=== PATIENT | female | born 1960 | race Caucasian/White ===

== ENCOUNTER 2017-01-11 10:16 | Emergency (ER) | payer OTHER ==
[~2017-01-11] VITALS: Ht 157.5 cm; Wt 65.9 kg
[2017-01-11] MEDS ORDERED: SOD CHLORIDE 0.9% 500 ML IV STA (10:21)
[2017-01-11] MEDS ORDERED: ASPIRIN 81 MG TAB PO STA (10:21)
[2017-01-11 10:23] VITALS: Ht 157.5 cm; Wt 65.9 kg
[2017-01-11 10:35] LABS: BASOPHIL # 0.1 10^3/ul (0.0-0.1); BASOPHILS % 0.7 % (0.0-2.0); EOSINOPHILS # 0.3 10^3/ul (0.0-0.5); EOSINOPHILS % 2.5 % (0.0-7.0); HEMATOCRIT 41.5 % (37.0-47.0); LYMPHOCYTES # 4.2 10^3/ul (0.8-2.9); LYMPHOCYTES % 35.6 % (15.0-51.0); MEAN CORPUSCULAR HEMOGLOBIN 31.3 pg (29.0-33.0); MEAN CORPUSCULAR HGB CONC 33.7 g/dl (32.0-37.0); MEAN CORPUSCULAR VOLUME 92.6 fl (82.0-101.0); MEAN PLATELET VOLUME 10.8 fl (7.4-10.4); MONOCYTE # 0.6 10^3/ul (0.3-0.9); MONOCYTES % 5.3 % (0.0-11.0); NEUTROPHIL # 6.6 10^3/ul (1.6-7.5); NEUTROPHILS % 55.4 % (39.0-77.0); PLATELET COUNT 308 10^3/UL (140-415); RED BLOOD COUNT 4.48 10^6/ul (4.20-5.40); RED CELL DISTRIBUTION WIDTH 12.3 % (11.5-14.5); WHITE BLOOD COUNT 11.8 10^3/ul (4.8-10.8)
[2017-01-11 10:49] LABS: ANION GAP 15 (8-16); BLOOD UREA NITROGEN 8 mg/dl (7-20); CALCIUM 9.4 mg/dl (8.4-10.2); CARBON DIOXIDE 26 mmol/L (21-31); CHLORIDE 103 mmol/L (97-110); CREATININE 0.82 mg/dl (0.44-1.00); GLUCOSE 273 mg/dl (70-220); POTASSIUM 4.4 mmol/L (3.5-5.1); SODIUM 140 mmol/L (135-144)
[2017-01-11 11:03] LABS: TROPONIN-I < 0.012 ng/ml (0.00-0.12)
[2017-01-11] MEDS ORDERED: MTF1000T PO (11:27)
[2017-01-11] MEDS ORDERED: ATOR40TA68 PO (11:28)
[2017-01-11] MEDS ORDERED: LISI-313 PO (11:28)
[2017-01-11] MEDS ORDERED: ASPI81TA3 PO (11:28)
[2017-01-11] MEDS ORDERED: METO-448 PO (11:29)
--- NOTE | 2017-01-11 11:47 | RADRPT ---
PROCEDURE: XR Chest. CLINICAL INDICATION: chest pain TECHNIQUE: Single frontal view of the chest was obtained COMPARISON: None FINDINGS: The heart and mediastinum are within normal limits. The patient is status post sternotomy. The lungs are clear. There is no pleural effusion or pneumothorax. RPTAT: AA IMPRESSION: No acute disease. .Bright Booth MD, MD Date Time Electronically viewed and signed by .Bright Booth MD, MD on 01/11/2017 11:47 .S/
--- NOTE | 2017-01-11 12:00 | ERD ---
ER Documentation Chief Complaint Chief Complaint Pt BIB RA with c/o weakness and legs shaky, diaophoretic after walking HPI This is an extremely pleasant 56-year-old female who presents to the emergency room with generalized weakness. She states that she is in town trying to visit her primary care physician or pain specialist. She states that while walking approximately 4 blocks she felt generally weak and had shaking legs. She became diaphoretic and told the business team leader to call 911. She denied any chest pain, no shortness of breath and no pleuritic pain. EMS called because they were concerned about ST elevation myocardial infarction based on initial EKG. ROS All systems reviewed and are negative except as per history of present illness. Medications Home Meds Reported Medications Metoprolol Tartrate* (Lopressor*) 25 Mg Tab, 12.5 MG PO BID, #60 TAB 01/11/17 Lisinopril* (Lisinopril*) 5 Mg Tablet, 5 MG PO DAILY, #30 TAB 01/11/17 Aspirin* (Aspirin* Chew) 81 Mg Tab.chew, 81 MG PO DAILY, TAB.CHEW 01/11/17 Atorvastatin* (Atorvastatin*) 40 Mg Tablet, 40 MG PO QHS, #30 TAB 01/11/17 Metformin* (Glucophage*) 1,000 Mg Tablet, 1000 MG PO BID, #60 TAB 01/11/17 Allergies Allergies: Coded Allergies: No Known Allergy (Unverified , 01/11/17) PMhx/Soc History of Surgery: Yes (CABG - 2015 , ) Anesthesia Reaction: No Hx Neurological Disorder: No Hx Respiratory Disorders: No Hx Cardiac Disorders: Yes (CAD) Hx Psychiatric Problems: No Hx Miscellaneous Medical Probl: Yes (Cholesterol, DM) Hx Alcohol Use: No Hx Substance Use: Yes (marijuana as a teenager) Smoking Status: Current every day smoker FmHx Family History: coronary disease Physical Exam Vitals Vital Signs Date Time Temp Pulse Resp B/P Pulse Ox O2 Delivery O2 Flow Rate FiO2 01/11/17 12:01 98.1 88 18 105/58 98 Room Air 01/11/17 10:26 2 01/11/17 10:23 98.3 92 18 106/67 100 Physical Exam General: Well developed, well nourished, no acute distress Head: Normocephalic, atraumatic. Eyes: Pupils equally reactive, EOM intact ENT: Moist mucous membranes Neck: Supple, no lymphadenopathy Respiratory: Lungs clear bilaterally, no distress Cardiovascular: RRR, no murmurs, rubs, or gallops Abdominal: Soft, non-tender, non-distended, no peritoneal signs : Deferred MSK: No edema, no unilateral swelling, 5/5 strength Neurologic: Alert and oriented, moving all extremities, normal speech, no focal weakness, no cerebellar signs Skin: No rash Psych: Normal mood Result Diagram: 01/11/17 1020 01/11/17 1020 Results 24 hrs Laboratory Tests Test 01/11/17 10:20 White Blood Count 11.810^3/ul Red Blood Count 4.4810^6/ul Hemoglobin 14.0g/dl Hematocrit 41.5% Mean Corpuscular Volume 92.6fl Mean Corpuscular Hemoglobin 31.3pg Mean Corpuscular Hemoglobin Concent 33.7g/dl Red Cell Distribution Width 12.3% Platelet Count 17373^3/UL Mean Platelet Volume 10.8fl Neutrophils % 55.4% Lymphocytes % 35.6% Monocytes % 5.3% Eosinophils % 2.5% Basophils % 0.7% Nucleated Red Blood Cells % 0.0/100WBC Neutrophils # 6.610^3/ul Lymphocytes # 4.210^3/ul Monocytes # 0.610^3/ul Eosinophils # 0.310^3/ul Basophils # 0.110^3/ul Nucleated Red Blood Cells # 0.010^3/ul Sodium Level 140mmol/L Potassium Level 4.4mmol/L Chloride Level 103mmol/L Carbon Dioxide Level 26mmol/L Anion Gap 15 Blood Urea Nitrogen 8mg/dl Creatinine 0.82mg/dl Glucose Level 273mg/dl Calcium Level 9.4mg/dl Troponin I < 0.012ng/ml Current Medications Medications (Trade) Dose Ordered Sig/Lois Route PRN Reason Start Time Stop Time Status Last Admin Dose Admin Sodium Chloride (NS) 500 ml @ 500 mls/hr Q1H STAT IV 01/11/17 10:21 01/11/17 11:20 DC 01/11/17 10:43 Aspirin (Aspirin) 162 mg ONCE STAT PO 01/11/17 10:21 01/11/17 10:23 DC 01/11/17 10:43 Procedures/MDM EKG, MONITORS, & DIAGNOSTIC IMAGING: Field EKG: EKG: I reviewed and interpreted a 12-lead EKG. Rhythm: Normal sinus rhythm Ectopy: None Intervals: No abnormalities ST segments: Very subtle ST segment abnormalities less than 1 mm elevation in the inferior leads with Q waves T waves: No contiguous inversions EKG #1 EKG: I reviewed and interpreted a 12-lead EKG. Rhythm: Normal sinus rhythm Ectopy: None Intervals: No abnormalities ST segments: Very subtle ST segment abnormalities less than 1 mm elevation in the inferior leads with Q waves T waves: No contiguous inversions EKG #2 EKG: I reviewed and interpreted a 12-lead EKG. Rhythm: Normal sinus rhythm Ectopy: None Intervals: No abnormalities ST segments: Very subtle ST segment abnormalities less than 1 mm elevation in the inferior leads with Q waves T waves: No contiguous inversions Chest x-ray: I reviewed and interpreted a 1 view of the chest Mediastinum: No enlargement Cardiac silhouette: No cardiomegaly Airspace: Clear lung fletcher bilaterally without evidence of pneumothorax Bones: No evidence of fracture LAB INTERPRETATION: Negative troponin MEDICAL DECISION MAKING: Field EKG was read as acute NC. However on reviewing the initial EKG the patient did not meet criteria for ST elevation myocardial infarction activation. There is no reciprocal changes on EKG. Upon arrival the patient was asymptomatic and feeling well. The patient was walking outside and it is 100 outside. Her symptoms are likely secondary to exhaustion. No evidence of heatstroke. However, the patient does have a history of cardiac history as well as CABG. She does not describe any chest pain or anginal equivalent at this point. I immediately had a conversation with the wind energy systems installer employee relations specialist, Dr. Kay. Reviewed the patient's EKGs from the field as well as serial EKGs in the ER. She agrees that this does not meet STEMI activation criteria and medical management is appropriate. ER COURSE: The patient's laboratory testing was unrevealing. She was given IV fluids and continues to be well-appearing. We had a prolonged conversation regarding the risk of cardiac etiology. While the patient did not have any chest pain or anginal equivalent I cannot clearly explain her symptoms away as just being out in the heat even though this is most likely. I did recommend inpatient hospitalization for serial evaluation and serial enzymes. We did discuss her heart score as well as Mace rate and the risks of outpatient management. She verbalized understanding of the risks of outpatient management but does not want to be hospitalized. She does not believe this is her heart and nose are body well. She has capacity. The patient states that she would like to be discharged home. Based on the fact that the patient had no chest pain, no dynamic EKG and a negative troponin I believe she is making a reasonable decision. She understands the risks and again has capacity. She will be discharged and states that she follows up with her primary care physician as soon as possible. I kept the patient and/or family informed of laboratory and diagnostic imaging results throughout the emergency room course. DISPOSITION PLAN: We discussed follow up with the patient's primary care doctor within 24 to 48 hours as needed. We also discussed return to the emergency room for worsening symptoms or worsening condition. Outpatient referral: [None required] Discharge Medications: None required Departure Diagnosis: Primary Impression: Generalized weakness Additional Impressions: Hyperglycemia History of coronary artery bypass graft Condition: Stable Patient Instructions: Weakness, Unk Cause Additional Instructions: It is very important to follow-up with your primary care physician and see a product advisor. Return for any chest pain or worsening symptoms. You understand my recommendation was for hospitalization and based on our shared decision-making of decided to be discharged. You have verbalized understanding of the risks involved with discharge and outpatient management. ASHKAN EUGENE MD Jan 11, 2017 11:59
[2017-01-11 12:01] VITALS: BP 105/58; PULSE 88; RESP 18; TEMP 98.1
== END 2017-01-11 12:12 | disposition home or self-care (01) ==
LOC: E/R 10:16
DX: R53.1 Weakness (principal); E11.65 Type 2 diabetes mellitus with hyperglycemia; I25.10 Atherosclerotic heart disease of native coronary artery without angina pectoris; F17.210 Nicotine dependence, cigarettes, uncomplicated; Z79.82 Long term (current) use of aspirin; Z79.84 Long term (current) use of oral hypoglycemic drugs
CPT/HCPCS: 36415; 71010; 80048; 84484; 85025; 93005; J7040; Z7502; Z7610